=== PATIENT | male | born 1970 | race Caucasian/White ===

== ENCOUNTER 2020-04-04 08:43 | Emergency (ER) | payer BC, SELFPAY ==
--- NOTE | ~2020-04-04 | XR_ITS ---
EXAMINATION: XR chest 2V DATE: 04/04/2020 09:29 INDICATION: Chest tightness and dizziness TECHNIQUE: PA and lateral views of the chest were obtained. COMPARISON: Chest radiograph dated 11/18/2019 FINDINGS: The lungs remain clear with no focal airspace opacities, pulmonary edema, pleural effusion or pneumot horax. The cardiomediastinal silhouette is normal. Cholecystectomy clips in the right upper quadrant. IMPRESSION: 1. No acute cardiopulmonary disease. Reviewed, dictated and finalized at location A.
[2020-04-04 08:47] VITALS: BP 179/105; PULSE 64; RESP 23; O2SAT 100
--- NOTE | 2020-04-04 08:54 | ECG_ITS ---
Measurements Intervals [place] Rate: 63 P: 15 VA: 154 QRS: 11 QRSD: 97 T: 24 QT: 392 QTc: 401 Interpretive Statements SINUS RHYTHM BASELINE ARTIFACT- II, III, AVF NORMAL ECG Electronically Signed On 04-04-2020 8:58:18 CDT by Gage Montano D.O.
[2020-04-04 09:02] LABS: Basophils Absolute Auto 0.1 K/mm3 (0.0-0.1); Basophils Percent Auto 0.7 % (0.2-1.2); Eosinophils Percent Auto 0.4 % (0-4.4); Hematocrit 45.9 % (42.0-52.0); Hemoglobin 15.6 g/dL (14.0-18.0); Immature Granulocyte Absolute 0.03 K/mm3 (0.00-0.031); Immature Granulocyte Percent A 0.3 % (0-0.5); Lymphocytes Absolute Auto 2.75 K/mm3 (0.9-3.2); Lymphocytes Percent Auto 30.7 % (18.3-44.2); Mean Corpuscular Hemoglobin 30.2 pg (26-34); Mean Corpuscular Volume 88.8 fl (80-100); Mean Platelet Volume 9.4 fl (7.4-10.4); Monocytes Absolute Auto 0.8 K/mm3 (0.1-0.6); Monocytes Percent Auto 8.5 % (2.6-8.5); Neutrophils Absolute Auto 5.3 K/mm3 (1.3-6.7); Neutrophils Percent Auto 59.4 % (45.5-73.1); Platelet Count Result 320 k/mm3 (150-375); Red Blood Count 5.17 M/mm3 (4.6-6.20); Red Cell Distribution Width 13.3 % (11.5-14.5)
[2020-04-04 09:12] LABS: INR 0.9; Prothrombin Time 11.9 Seconds (11.1-14.7)
[2020-04-04 09:13] LABS: Partial Thromboplastin Time 22.5 SECONDS (22.3-36.8)
[2020-04-04 09:14] LABS: Blood Urea Nitrogen 24 mg/dL (9-20); Calcium 8.7 mg/dL (8.4-10.2); Carbon Dioxide 29 mmol/L (22-30); Chloride 106 mmol/L (98-107); Estimated CRCL calculation 103 ml/min; Estimated Glomerular Filt Rate > 60; Glucose 108 mg/dL (75-110); Sodium 139 mmol/L (137-145)
--- NOTE | 2020-04-04 09:18 | ED.GENADULT ---
HPI - General Adult General Chief complaint: Arrhythmia/Palpitations Stated complaint: weakness Time Seen by Provider: 04/04/20 09:04 History of Present Illness HPI narrative: Patient is a 49-year-old male who presents ER with central chest pressure. Sudden onset just prior to arrival. Lasted for several minutes. 03/11, radiated to his back. He has no cardiac stents but has had cardiac catheterization twice for elevated troponins. He has been told he has no blockages. Reports he is on the phone arguing with coworkers when symptoms started. He laid down to rest and reports he developed some brief disorientation. No focal numbness/weakness in arm or leg. No modifying factors at this time. Related Data Home Medications Medication Instructions Recorded Confirmed atorvastatin 20 mg PO DAILY 11/18/19 11/18/19 ranitidine HCl [Zantac] 150 mg PO DAILY 11/18/19 11/18/19 trazodone 75 mg PO HS 11/18/19 11/18/19 Allergies Allergy/AdvReac Type Severity Reaction Status Date / Time No Known Allergies Allergy Verified 04/04/20 08:53 Review of Systems Review of Systems: All systems reviewed & are unremarkable except as noted in HPI and below Constitutional: Constitutional: Denies chills, Denies fever(s) and Denies weakness ENT: Denies nasal congestion and Denies sore throat Cardiovascular: Cardiovascular: Reports chest pain and Denies radiating jaw, neck or arm pain Comments: Radiates to back Respiratory: Respiratory: Denies chest congestion, Denies cough and Denies dyspnea Gastrointestinal: Gastrointestinal: Denies abdominal pain, Denies nausea and Denies vomiting [facility] Past Medical History Medical History Anxiety and depression Atrial fibrillation Has AFib when he has panic attacks, last episode around 2008 COPD (chronic obstructive pulmonary disease) Essential hypertension Fractures Has had several fractures of his legs, arms and sternum. 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 Gastric ulcer Around 1999 GERD (gastroesophageal reflux disease) History of atrial fibrillation Hyperlipidemia Hypertension Mitral valve prolapse Diagnosis around , has not been a problem. Surgical History Surgical History H/O cardiac catheterization Without stent placement around [address] [facility], [place] History of appendectomy 2004 Hx of cholecystectomy 2008 Social History Social History Social History: The patient is single. But is in a committed relationship for the last year so, girlfriend is a nurse. He rarely drinks alcohol. He denies illicit substance use. He started smoking when he was 17 years old. He has successfully quit in the past for about 8 years. He has smoked as much as 2 packs per day but has been down to a pack per day since he started smoking again about 5 years ago. He has 2 children who are in the 20s and her healthy. 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 Primary care physician: Dr. 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 Gender identity (if verbalized by the patient): Male Spiritual care concerns: No Agree to blood products: Yes Exam Narrative: Exam Narrative: GENERAL: Well-appearing, well-nourished, and in no acute distress. HEAD: Normocepha
[2020-04-04 09:21] VITALS: BP 159/100; PULSE 61; RESP 12; O2SAT 98
[2020-04-04] MEDS: ASPIRIN 81 MG CHEWABLE TABLET 324 MG PO (09:21)
[2020-04-04 09:26] LABS: Troponin I < 0.012 ng/mL (0.000-0.034)
[2020-04-04 09:58] VITALS: BP 153/107; PULSE 56; RESP 19; O2SAT 98
[2020-04-04 10:51] VITALS: BP 166/69; PULSE 53; RESP 18; O2SAT 97
[2020-04-04 12:43] LABS: Troponin I < 0.012 ng/mL (0.000-0.034)
[2020-04-04 14:25] VITALS: BP 121/90; PULSE 63; RESP 17; O2SAT 100
== END 2020-04-04 14:26 | disposition home or self-care (01) ==
PROVIDERS: Emergency Provider Emergency Medicine
DX: F41.9 Anxiety disorder, unspecified (principal); F32.9 Major depressive disorder, single episode, unspecified; J44.9 Chronic obstructive pulmonary disease, unspecified; K21.9 Gastro-esophageal reflux disease without esophagitis; I10 Essential (primary) hypertension; E78.5 Hyperlipidemia, unspecified; I34.1 Nonrheumatic mitral (valve) prolapse; F17.210 Nicotine dependence, cigarettes, uncomplicated
CPT/HCPCS: 36415; 71046; 80048; 84484; 85025; 85610; 85730; 93005; 99284; A9270